=== PATIENT | male | born 1970 | race Two or more races ===

== ENCOUNTER 2021-03-06 00:10 | Outpatient (CLI) | payer OTHER | END 2021-03-06 00:11 | disposition home or self-care (01) | LOC: PPH VACUNA 00:10 | DX: Z23 Encounter for immunization (principal) ==

== ENCOUNTER 2021-03-27 08:00 | Outpatient (CLI) | payer OTHER | END 2021-03-27 08:05 | disposition home or self-care (01) | LOC: PPH VACUNA 08:00 | DX: Z23 Encounter for immunization (principal) ==